=== PATIENT | male | born 1975 | race African-American/Black ===

== ENCOUNTER 2020-01-15 17:08 | Emergency (ER) | payer MEDICAID ==
[~2020-01-15] VITALS: Ht 180.3 cm; Wt 136.0 kg
[~2020-01-15 17:08] MED LIST: ALBUTEROL; FLUPHENAZINE; HYDROXYZINE PAMOATE; PHEN100C12 PO
[2020-01-15 17:52] VITALS: BP 139/89
[2020-01-15] MEDS ORDERED: ALBUTEROL 6.7GM HFA INHALER ORI ONE (18:15)
[2020-01-15 20:34] LABS: BASOPHILS % 0.3 % (0.0-2.0); EOSINOPHILS % 0.8 % (0.0-5.0); HEMATOCRIT. 45.8 % (42.0-52.0); HEMOGLOBIN. 14.6 g/dL (14.0-18.0); LYMPHOCYTES % 30.5 % (20.0-50.0); MEAN CORPUSCULAR HEMOGLOBIN 23.9 pg (28.0-32.0); MEAN CORPUSCULAR VOLUME 75.2 fL (80.0-94.0); MEAN PLATELET VOLUME 7.8 fl (7.4-10.4); MONOCYTES % 12.7 % (2.0-8.0); NEUTROPHILS % 55.7 % (40.0-76.0); PLATELET 288 x1000/uL (130-400); RED BLOOD CELL COUNT 6.09 mill/uL (4.7-6.1); RED CELL DISTRIBUTION WIDTH 13.6 % (11.6-14.6)
[2020-01-15 20:40] LABS: CHLORIDE 101 mEq/L (98-107)
== END 2020-01-15 21:25 | disposition home or self-care (01) ==
LOC: ER 17:08
DX: U07.1 COVID-19 (principal); R05 Cough; J45.909 Unspecified asthma, uncomplicated; Z87.820 Personal history of traumatic brain injury
CPT/HCPCS: 36415; 71045; 80053; 85025; 87635; 99284